=== PATIENT | female | born 1980 | race Caucasian/White ===

== ENCOUNTER 2019-05-17 15:47 | Emergency (ER) | payer OTHER ==
[2019-05-17 16:04] VITALS: BP 131/85; PULSE 89; TEMP 98.3; BMI 30.2
[2019-05-17] MEDS ORDERED: IBUPROFEN 400 MG TABLET (FP) PO ONE ×2 (16:22→16:26)
[2019-05-17] MEDS ORDERED: IBUPROFEN 600 MG TABLET (FP) PO ONE (16:27)
--- NOTE | 2019-05-17 16:27 | PDOC ---
History of Present Illness - General Chief Complaint: Cold Symptoms Stated Complaint: Cold Symptoms Time Seen by Provider: 05/17/19 16:07 History Source: Patient - History of Present Illness Timing/Duration: reports: other Past History - Past Medical History Allergies/Adverse Reactions: Allergies Allergy/AdvReac Type Severity Reaction Status Date / Time morphine Allergy Verified 05/17/19 16:04 Home Medications: Ambulatory Orders Acetaminophen [Tylenol] 650 mg PO Q6H #30 capsule 05/17/19 Sulfamethoxazole/Trimethoprim [Bactrim Ds Tablet] 1 each PO BID #14 tablet 05/17/19 Asthma: No Cancer: No Cardiac Disorders: Yes (R/O ARVD( CARDIOMYOPATHY) COPD: No DVT: No Diabetes: No HTN: No Seizures: No Thyroid Disease: No - Immunization History Immunization Up to Date: Yes - Psycho Social/Smoking Cessation Hx Smoking History: Never smoked Have you smoked in the past 12 months: No Number of Cigarettes Smoked Daily: 0 Cigars Per Day: 0 Information on smoking cessation initiated: No Hx Alcohol Use: No Drug/Substance Use Hx: No Substance Use Type: None Hx Substance Use Treatment: No Review of Systems - Review of Systems Constitutional: Yes: Chills, Malaise HEENTM: No: Ear Pain, Throat Pain Respiratory: No: Cough ABD/GI: Yes: Nausea. No: Diarrhea, Vomiting, Abdominal cramping : No: Burning, Dysuria, Flank Pain, Hematuria Musculoskeletal: Yes: Back Pain *Physical Exam - Vital Signs Last Vital Signs Temp Pulse Resp BP Pulse Ox 98.3 F 89 18 131/85 100 05/17/19 16:02 05/17/19 16:02 05/17/19 16:02 05/17/19 16:02 05/17/19 16:02 - Physical Exam 05/17/19 16:26 [email or web address] uncomfortable General Appearance: Yes: Appropriately Dressed, Apparent Distress HEENT: positive: Normal ENT Inspection, TMs Normal, Pharynx Normal. negative: Normal Voice, Scleral Icterus (R), Scleral Icterus (L) Neck: positive: Supple Respiratory/Chest: positive: Lungs Clear, Normal Breath Sounds. negative: Respiratory Distress Cardiovascular: positive: Regular Rate, S1, S2 Gastrointestinal/Abdominal: positive: Normal Bowel Sounds, Soft. negative: Tender, Distended, Guarding, Rebound Musculoskeletal: positive: Normal Inspection, CVA Tenderness (R), CVA Tenderness (L) Integumentary: positive: Dry, Warm Neurologic: positive: Fully Oriented, Alert, Normal Mood/Affect Medical Decision Making - Medical Decision Making 05/17/19 16:23 38-year-old female, denies any sig past medical history, here with malaise with body aches including mid back pain w/ nausea and chills x several days. No documented fever, vomiting, sore throat, ear pain, cough, abdominal pain or dysuria. No recent travel or sick contacts see exam Viral syndrome, r/o flu vs UTI/pyelo -pain meds -flu -ua/cx 05/17/19 17:13 UA with positive nitrites and leuks. Given symptoms, will tx for pyelo. Will give dose of ceftriaxone here based on prior sensitivities on record. As no documented fever or vomiting, anticipate discharge with oral antibiotics. 05/17/19 18:21 Pt s/p abx and IVF and reports feeling better at this time. Repeat vitals remained stable. Dc with antibiotics with strict return precautions Discharge - Discharge Information Problems reviewed: Yes Clinical Impression/Diagnosis: Pyelonephritis Condition: Improved Disposition: HOME - Additional Discharge Information Prescriptions: Sulfamethoxazole/Trimethoprim [Bactrim Ds Tablet] 1 each PO BID #14 tablet Acetaminophen [Tylenol] 650 mg PO Q6H #30 capsule - Follow up/Referral Referrals: Lane Jay MD [Primary Care Provider] - - Patient Discharge Instructions Patient Printed Discharge Instructions: Kidney Infection Additional Instructions: Usted fue tratado por infeccin renal. [place] la medicacin segn lo prescrito y si los sntomas persisten o empeoran, regrese a la sneha de emergencias inmediatamente Print Language: NIGERIEN - Post Discharge Activity
[2019-05-17 16:57] LABS: EPI CELLS 7.5 /HPF (0-5/HPF); HYALINE CASTS 5 /lpf (0-8); PH,URINE 6.5 (5.0-8.0); URINE APPEARANCE CLEAR; URINE BACTERIA 1476.7 /hpf (NEGATIVE); URINE BILIRUBIN NEGATIVE (NEGATIVE); URINE COLOR YELLOW; URINE GLUCOSE (UA) NEGATIVE (NEGATIVE); URINE KETONE NEGATIVE (NEGATIVE); URINE LEUK ESTERASE NEGATIVE (NEGATIVE); URINE NITRITE POSITIVE (NEGATIVE); URINE PROTEIN 2+ (NEGATIVE); URINE RBC 28 /hpf (0-4); URINE WBC 6 /hpf (0-5)
[2019-05-17 16:58] LABS: HCG,QUALITATIVE URINE Negative
[2019-05-17] MEDS ORDERED: CEFTRIAXONE 1 GM in DEXTROSE 5%-WATER - 50 ML IVPB ONE (16:59)
[2019-05-17] MEDS ORDERED: CEFTRIAXONE 1 GM/50 ML BAG ONE (17:03)
[2019-05-17] MEDS ORDERED: SODIUM CHLORIDE 1,000 ML IV STA (17:08)
== END 2019-05-17 18:22 | disposition home or self-care (01) ==
LOC: JERFT 15:47
PROC: 3E03329 Introduction of Other Anti-infective into Peripheral Vein, Percutaneous Approach (ICD-10-PCS; principal; 2019-05-17)
PROC: 3E0337Z Introduction of Electrolytic and Water Balance Substance into Peripheral Vein, Percutaneous Approach (ICD-10-PCS; 2019-05-17)
DX: N12 Tubulo-interstitial nephritis, not specified as acute or chronic (principal); Z88.6 Allergy status to analgesic agent
CPT/HCPCS: 81003; 84703; 87086; 87186; 87804; 96361; 96365; 99284-25; J7030

== ENCOUNTER 2020-05-01 19:54 | Emergency (ER) | payer OTHER ==
[2020-05-01 20:01] VITALS: TEMP 98.1; BMI 29.2
[2020-05-01] MEDS ORDERED: SODIUM CHLORIDE 0.9% 500 ML INFUS.BAG IV ONE (21:05)
[2020-05-01 21:28] VITALS: BP 128/84; PULSE 110
[2020-05-01 21:31] LABS: BASO % 0.9 % (0-2.0); EOS % 1.1 % (0-4.5); HEMOGLOBIN 13.9 GM/dL (10.7-15.3); LYMPH % 27.6 % (8-40); MCHC 36.6 g/dl (32.0-36.0); MEAN CELL VOLUME 98.4 fl (80-96); MEAN PLT VOLUME 9.3 fl (7.5-11.1); MONO % 8.4 % (3.8-10.2); PLATELET COUNT 207 K/MM3 (134-434); RBC 3.86 M/mm3 (3.60-5.2); RDW 12.4 % (11.6-15.6); WHITE BLOOD COUNT 5.5 K/mm3 (4.0-10.0)
[2020-05-01 21:38] LABS: PH,URINE 7.5 (5.0-8.0); URINE APPEARANCE CLEAR; URINE BILIRUBIN NEGATIVE (NEGATIVE); URINE COLOR YELLOW; URINE GLUCOSE (UA) NEGATIVE (NEGATIVE); URINE KETONE NEGATIVE (NEGATIVE); URINE LEUK ESTERASE NEGATIVE (NEGATIVE); URINE NITRITE NEGATIVE (NEGATIVE); URINE PROTEIN NEGATIVE (NEGATIVE); URINE UROBILINOGEN 0.2 mg/dL (0.2-1.0)
[2020-05-01 21:53] LABS: CHLORIDE 106 mmol/L (98-107); POTASSIUM 4.1 mmol/L (3.5-5.1); SODIUM 138 mmol/L (136-145)
[2020-05-01 21:56] LABS: ALBUMIN 4.1 g/dl (3.4-5.0); ANION GAP 8 MMOL/L (8-16); BLOOD UREA NITROGEN 13.1 mg/dL (7-18); CO2 25 mmol/L (21-32); GLUCOSE,RANDOM 95 mg/dL (74-106)
[2020-05-01 21:57] LABS: MAGNESIUM 2.2 mg/dL (1.8-2.4)
[2020-05-01 22:00] LABS: BILIRUBIN,TOTAL 2.1 mg/dL (0.2-1); CREATININE 0.6 mg/dL (0.55-1.3); PHOSPHOROUS 2.9 mg/dL (2.5-4.9); SGOT/AST 19 U/L (15-37); SGPT/ALT 32 U/L (13-61)
[2020-05-01 22:01] LABS: TOT PROT 8.2 g/dl (6.4-8.2)
[2020-05-01 22:02] LABS: ALK PHOS 99 U/L (45-117)
== END 2020-05-01 23:30 | disposition home or self-care (01) ==
LOC: JER 19:54
DX: R00.2 Palpitations (principal)
CPT/HCPCS: 36415; 71046-TC-FY; 80053; 81003; 82550; 83735; 84100; 84443; 84484; 84703; 85025; 87086; 87186; 93005; 93010; 99285-25

== ENCOUNTER 2020-06-22 19:22 | Emergency (ER) | payer OTHER ==
[2020-06-22 19:32] VITALS: TEMP 98.6; BMI 30.4
[2020-06-22] MEDS ORDERED: LACTATED RINGERS SOLUTION 1000 ML INFUS.BAG IV ONE (20:52)
[2020-06-22] MEDS ORDERED: METOCLOPRAMIDE HCL INJECTION 10 MG/2 ML VIAL IVPUSH ONE (20:52)
[2020-06-22] MEDS ORDERED: ACETAMINOPHEN 325 MG TABLET (FP) PO ONE (20:53)
[2020-06-22] MEDS ORDERED: LIDOCAINE 5% TOPICAL PATCH TP ONE (20:53)
[2020-06-22] MEDS ORDERED: ACETAMINOPHEN 325 MG TABLET (FP) ONE (21:00)
[2020-06-22] MEDS ORDERED: METOCLOPRAMIDE HCL INJECTION 10 MG/2 ML VIAL ONE (21:01)
[2020-06-22] MEDS ORDERED: LIDOCAINE 5% TOPICAL PATCH ONE (21:01)
[2020-06-22] MEDS ORDERED: LIDOCAINE PATCH REMOVAL MC ONE (22:00)
[2020-06-22] MEDS ORDERED: KETOROLAC TROMETHAMINE 15 MG/ML VIAL IVPUSH ONE (22:12)
[2020-06-22] MEDS ORDERED: KETOROLAC TROMETHAMINE 15 MG/ML VIAL ONE (22:23)
[2020-06-22 23:41] VITALS: BP 122/78; PULSE 80
== END 2020-06-22 23:40 | disposition home or self-care (01) ==
LOC: JER 19:22
PROC: 3E0333Z Introduction of Anti-inflammatory into Peripheral Vein, Percutaneous Approach (ICD-10-PCS; principal; 2020-06-22)
PROC: 3E033GC Introduction of Other Therapeutic Substance into Peripheral Vein, Percutaneous Approach (ICD-10-PCS; 2020-06-22)
DX: G44.201 Tension-type headache, unspecified, intractable (principal)
CPT/HCPCS: 99284-25

== ENCOUNTER 2021-01-29 15:23 | Emergency (ER) | payer OTHER ==
[2021-01-29 15:30] VITALS: BP 115/75; PULSE 75; TEMP 98.1; BMI 31.2
[2021-01-29] MEDS ORDERED: METOCLOPRAMIDE HCL INJECTION 10 MG/2 ML VIAL ONE (16:02)
[2021-01-29] MEDS ORDERED: KETOROLAC TROMETHAMINE 30 MG/1 ML VIAL ONE (16:02)
[2021-01-29] MEDS ORDERED: SODIUM CHLORIDE 0.9% 500 ML INFUS.BAG IV ONE (16:04)
[2021-01-29] MEDS ORDERED: KETOROLAC TROMETHAMINE 30 MG/1 ML VIAL IVPUSH ONE (16:04)
[2021-01-29] MEDS ORDERED: METOCLOPRAMIDE HCL INJECTION 10 MG/2 ML VIAL IVPUSH ONE (16:04)
== END 2021-01-29 18:04 | disposition home or self-care (01) ==
LOC: JERFT 15:23 → JER 15:23 → JERFT 18:04
PROC: 3E033GC Introduction of Other Therapeutic Substance into Peripheral Vein, Percutaneous Approach (ICD-10-PCS; principal; 2021-01-29)
DX: R51.9 Headache, unspecified (principal)
CPT/HCPCS: 93005; 93010; 96374; 96375; 99284-25

== ENCOUNTER 2022-01-05 15:56 | Emergency (ER) | payer OTHER ==
[2022-01-05] MEDS ORDERED: ACETAMINOPHEN 1000 MG/100 ML BAG IVPB ONE (16:12)
[2022-01-05] MEDS ORDERED: LACTATED RINGERS SOLUTION 1000 ML INFUS.BAG IV ONE (16:13)
[2022-01-05 16:14] VITALS: BP 124/80; PULSE 93; RESP 18; TEMP 98.8; BMI 32.2
[2022-01-05] MEDS ORDERED: ACETAMINOPHEN INJECTION 100 ML IVPB ONE (16:17)
[2022-01-05] MEDS ORDERED: SODIUM CHLORIDE 0.9% 500 ML INFUS.BAG IV ONE (16:18)
[2022-01-05 16:38] LABS: HEMATOCRIT 40.2 % (32.4-45.2); HEMOGLOBIN 14.7 G/dL (10.7-15.3); MCH 36.5 pg (25.7-33.7); MCHC 36.6 g/dl (32.0-36.0); MEAN CELL VOLUME 99.8 fl (80-96); MEAN PLT VOLUME 9.2 fl (7.5-11.1); PLATELET COUNT 217.9 10^3/uL (134-434); RBC 4.03 10^6/uL (3.60-5.2); RDW 13.4 % (11.6-15.6); WHITE BLOOD COUNT 9.1 10^3/uL (4.0-10.8)
[2022-01-05 16:44] LABS: HCG,QUALITATIVE URINE Negative
[2022-01-05 16:59] LABS: INR 1.01 (0.83-1.09); PROTHROMBIN TIME (PATIENT) 11.6 SEC (9.7-13.0)
[2022-01-05 17:02] LABS: ACTIVATED PTT 31.4 SECONDS (25.2-36.5)
[2022-01-05 17:07] LABS: ALBUMIN 4.4 g/dl (3.4-5.0); BILIRUBIN,TOTAL 1.7 mg/dl (0.2-1); CALCIUM 9.6 mg/dl (8.5-10); CREATININE 0.5 mg/dl (0.55-1.3)
[2022-01-05 18:00] LABS: PLATELET ESTIMATE ADEQUATE
[2022-01-05] MEDS ORDERED: CEPHALEXIN MONOHYDRATE 500 MG CAPSULE (UD) PO ONE (18:32)
[2022-01-05] MEDS ORDERED: CEPHALEXIN MONOHYDRATE 500 MG CAPSULE (UD) ONE (18:34)
== END 2022-01-05 18:45 | disposition home or self-care (01) ==
LOC: FER 15:56
PROC: 3E033NZ Introduction of Analgesics, Hypnotics, Sedatives into Peripheral Vein, Percutaneous Approach (ICD-10-PCS; principal; 2022-01-05)
DX: R10.9 Unspecified abdominal pain (principal)
CPT/HCPCS: 36415; 74176-TC; 80053; 81003; 84703; 85025; 85610; 85730; 86850; 86900; 86901; 87086; 87186; 99285-25

== ENCOUNTER 2022-01-06 10:49 | Emergency (ER) | payer OTHER ==
[2022-01-06 11:08] VITALS: BP 130/70; PULSE 108; RESP 18; TEMP 97.9; BMI 29.2
[2022-01-06] MEDS ORDERED: KETOROLAC TROMETHAMINE 30 MG/1 ML VIAL IM ONE (11:39)
[2022-01-06] MEDS ORDERED: KETOROLAC TROMETHAMINE 30 MG/1 ML VIAL ONE (12:18)
== END 2022-01-06 13:07 | disposition home or self-care (01) ==
LOC: JER 10:49 → JERFT 10:49
PROC: 3E0233Z Introduction of Anti-inflammatory into Muscle, Percutaneous Approach (ICD-10-PCS; principal; 2022-01-06)
DX: J09.X2 Influenza due to identified novel influenza A virus with other respiratory manifestations (principal)
CPT/HCPCS: 0241U-QW; 71046-TC-FY; 96372; 99284-25

== ENCOUNTER 2022-07-09 04:17 | Day surgery (SDC) | payer OTHER ==
[2022-07-05 09:43] VITALS: BMI 31.2
[2022-07-09 15:00] VITALS: RESP 18
[2022-07-09] MEDS ORDERED: ONDANSETRON 4 MG/2 ML VIAL ONE (17:25)
[2022-07-09] MEDS ORDERED: MIDAZOLAM HCL 2 MG/2 ML SINGLE DOSE VIAL ONE (17:25)
[2022-07-09 19:04] VITALS: TEMP 97.1
[2022-07-09 19:23] VITALS: BP 124/82; PULSE 64
== END 2022-07-09 20:00 | disposition home or self-care (01) ==
LOC: JASU-SURG 04:17
PROVIDERS: ATTEND Urology
PROC: 0TF3XZZ Fragmentation in Right Kidney Pelvis, External Approach (ICD-10-PCS; principal; 2022-07-09 16:30)
DX: N20.0 Calculus of kidney (principal)
CPT/HCPCS: 81025

== ENCOUNTER 2022-08-20 14:44 | Emergency (ER) | payer OTHER ==
[2022-08-20 15:07] VITALS: BP 130/89; PULSE 69; RESP 16; TEMP 99.3; BMI 31.2
== END 2022-08-20 17:50 | disposition home or self-care (01) ==
LOC: FER 14:44
DX: R00.2 Palpitations (principal); R30.9 Painful micturition, unspecified; R30.0 Dysuria
CPT/HCPCS: 81003; 81015; 87086; 87186; 93005; 99284-25

== ENCOUNTER 2022-10-31 21:34 | Emergency (ER) | payer OTHER ==
[2022-10-31 21:49] VITALS: BMI 30.2
[2022-10-31] MEDS ORDERED: MAG HYDROX/AL HYDROX/SIMETH 30 ML UNIT-DOSE CUP PO ONE (22:28)
[2022-10-31] MEDS ORDERED: ONDANSETRON 4 MG/2 ML VIAL IVPUSH ONE (22:28)
[2022-10-31] MEDS ORDERED: SODIUM CHLORIDE 0.9% 500 ML INFUS.BAG IV ONE (22:28)
[2022-10-31] MEDS ORDERED: ACETAMINOPHEN 1000 MG/100 ML BAG IVPB ONE (22:28)
[2022-10-31] MEDS ORDERED: FAMOTIDINE 20 MG/50 ML IVPB 20 MG/50 ML MG IVPB ONE ×2 (22:28→22:53)
[2022-10-31] MEDS ORDERED: ACETAMINOPHEN INJECTION 100 ML IVPB ONE (22:52)
[2022-10-31] MEDS ORDERED: MAG HYDROX/AL HYDROX/SIMETH 30 ML UNIT-DOSE CUP ONE (22:52)
[2022-10-31] MEDS ORDERED: ONDANSETRON 4 MG/2 ML VIAL ONE (22:53)
[2022-10-31 23:18] LABS: BASO % 0.8 % (0-2.0); EOS % 1.3 % (0-4.5); HEMATOCRIT 39.7 % (32.4-45.2); HEMOGLOBIN 14.4 GM/dL (10.7-15.3); LYMPH % 20.8 % (8-40); MCH 35.2 pg (25.7-33.7); MCHC 36.3 g/dl (32.0-36.0); MEAN CELL VOLUME 96.8 fl (80-96); MEAN PLT VOLUME 9.2 fl (7.5-11.1); MONO % 4.7 % (3.8-10.2); NEUT % 72.4 % (42.8-82.8); PLATELET COUNT 220 10^3/uL (134-434); RDW 12.7 % (11.6-15.6); WHITE BLOOD COUNT 10.3 K/mm3 (4.0-10.0)
[2022-10-31 23:35] LABS: POTASSIUM 4.1 mmol/L (3.5-5.1)
[2022-10-31 23:37] LABS: CALCIUM 8.8 mg/dL (8.5-10.1)
[2022-10-31 23:38] LABS: ALBUMIN 3.6 g/dl (3.4-5.0); BLOOD UREA NITROGEN 15.6 mg/dL (7-18)
[2022-10-31 23:41] LABS: CREATININE 0.5 mg/dL (0.55-1.3)
[2022-10-31 23:42] LABS: BILIRUBIN,TOTAL 1.3 mg/dL (0.2-1); TOT PROT 7.8 g/dl (6.4-8.2)
[2022-11-01 00:50] VITALS: BP 132/80; PULSE 85; RESP 16; TEMP 98.3
== END 2022-11-01 03:55 | disposition home or self-care (01) ==
LOC: JER 21:34
PROC: 3E033GC Introduction of Other Therapeutic Substance into Peripheral Vein, Percutaneous Approach (ICD-10-PCS; principal; 2022-10-31)
PROC: 3E033NZ Introduction of Analgesics, Hypnotics, Sedatives into Peripheral Vein, Percutaneous Approach (ICD-10-PCS; 2022-10-31)
PROC: 3E033GC Introduction of Other Therapeutic Substance into Peripheral Vein, Percutaneous Approach (ICD-10-PCS; 2022-10-31)
DX: R11.10 Vomiting, unspecified (principal); R10.13 Epigastric pain; K80.51 Calculus of bile duct without cholangitis or cholecystitis with obstruction
CPT/HCPCS: 36415; 71046-TC-FY; 76705-TC; 80053; 83690; 84484; 84703; 85025; 93005; 93010; 99285-25

== ENCOUNTER → 2023-03-08 | Emergency (ER) | payer OTHER ==
[~2023-03-08] MED LIST: ACETAMINOPHEN 325 MG TABLET (FP) ONE; ACETAMINOPHEN 325 MG TABLET (FP) PO ONE; FLUORESCEIN NA 1 EA STRIP ONE; FLUORESCEIN NA 1 EA STRIP OU ONE; TETRACAINE 0.5% HCL 0.6ML DROPPER.BOTTLE OU ONE
[2023-03-08 13:19] VITALS: BP 140/85; PULSE 97; RESP 18; TEMP 99.4; BMI 31.2
== END | disposition short-term general hospital (02) ==
LOC: FER 12:44
DX: H92.03 Otalgia, bilateral (principal); H53.8 Other visual disturbances; R51.9 Headache, unspecified; Z20.822 Contact with and (suspected) exposure to COVID-19
CPT/HCPCS: 0241U-QW; 99285-25

== ENCOUNTER 2023-10-02 14:18 | Emergency (ER) | payer OTHER ==
[2023-10-02 14:32] VITALS: BMI 26.9
[2023-10-02] MEDS ORDERED: ONDANSETRON 4 MG/2 ML VIAL ONE (15:22)
[2023-10-02] MEDS ORDERED: ACETAMINOPHEN INJECTION 100 ML IVPB ONE (15:22)
[2023-10-02 15:27] LABS: BASO % 0.5 % (0-2.0); EOS % 0.3 % (0-4.5); HEMATOCRIT 36.6 % (32.4-45.2); HEMOGLOBIN 13.2 GM/dL (10.7-15.3); LYMPH % 7.8 % (8-40); MCH 35.9 pg (25.7-33.7); MCHC 36.1 g/dl (32.0-36.0); MEAN CELL VOLUME 99.6 fl (80-96); MEAN PLT VOLUME 8.8 fl (7.5-11.1); MONO % 6.5 % (3.8-10.2); NEUT % 84.9 % (42.8-82.8); PLATELET COUNT 236 10^3/uL (134-434); RBC 3.67 M/mm3 (3.60-5.2); RDW 13.1 % (11.6-15.6); WHITE BLOOD COUNT 12.4 K/mm3 (4.0-10.0)
[2023-10-02 15:33] LABS: INR 1.11 (0.83-1.09); PROTHROMBIN TIME (PATIENT) 12.7 SEC (9.7-13.0)
[2023-10-02 15:36] LABS: ACTIVATED PTT 30.5 SECONDS (25.2-36.5)
[2023-10-02] MEDS: ACETAMINOPHEN 1000 MG/100 ML BAG IVPB ONE (15:40)
[2023-10-02] MEDS: LACTATED RINGERS SOLUTION 1000 ML INFUS.BAG IV ONE (15:40)
[2023-10-02] MEDS: ONDANSETRON 4 MG/2 ML VIAL IVPUSH ONE (15:40)
[2023-10-02 15:46] LABS: CHLORIDE 104 mmol/L (98-107); SODIUM 136 mmol/L (136-145)
[2023-10-02 15:47] LABS: MAGNESIUM 2.1 mg/dL (1.8-2.4)
[2023-10-02 15:48] LABS: ALBUMIN 3.7 g/dl (3.4-5.0)
[2023-10-02 15:49] LABS: EPI CELLS 27 /uL (0-25.1); HYALINE CASTS 0 /uL (0-3.1); PH,URINE 7.5 (5.0-8.0); URINE APPEARANCE CLEAR; URINE BACTERIA 72 /uL (0-1359); URINE BILIRUBIN NEGATIVE (NEGATIVE); URINE COLOR YELLOW; URINE GLUCOSE (UA) NEGATIVE (NEGATIVE); URINE KETONE NEGATIVE (NEGATIVE); URINE LEUK ESTERASE TRACE (NEGATIVE); URINE NITRITE NEGATIVE (NEGATIVE); URINE PROTEIN NEGATIVE (NEGATIVE); URINE RBC 54 /uL (0-23.9); URINE UROBILINOGEN 0.2 mg/dL (0.2-1.0); URINE WBC 12 /uL (0-25.8)
[2023-10-02 15:49] LABS: ANION GAP 7 mmol/L (4-13); BLOOD UREA NITROGEN 6.6 mg/dL (7-18); CO2 26 mmol/L (21-32); GLUCOSE,RANDOM 95 mg/dL (74-106)
[2023-10-02 15:52] LABS: CREATININE 0.5 mg/dL (0.55-1.3); SGOT/AST 15 U/L (15-37); SGPT/ALT 29 U/L (13-61)
[2023-10-02 15:53] LABS: BILIRUBIN,TOTAL 3.6 mg/dL (0.2-1); TOT PROT 7.6 g/dl (6.4-8.2)
[2023-10-02 15:54] LABS: ALK PHOS 100 U/L (45-117)
[2023-10-02 16:56] LABS: BILIRUBIN,DIRECT 0.4 mg/dL (0.0-0.2)
[2023-10-02] MEDS: SODIUM CHLORIDE 0.9% 500 ML INFUS.BAG IV ONE (19:27)
[2023-10-02] MEDS ORDERED: diphenhydrAMINE HCL 25 MG CAPSULE (FP) PO ONE (19:28)
[2023-10-02] MEDS: diphenhydrAMINE HCL 50 MG CAPSULE PO ONE (19:29)
[2023-10-02] MEDS ORDERED: CEFTRIAXONE 1 GM/50 ML BAG ONE (19:41)
[2023-10-02 20:42] VITALS: BP 117/72; PULSE 100; RESP 17; TEMP 97.8
== END 2023-10-02 20:45 | disposition home or self-care (01) ==
LOC: JER 14:18
PROC: 3E033GC Introduction of Other Therapeutic Substance into Peripheral Vein, Percutaneous Approach (ICD-10-PCS; principal; 2023-10-02)
PROC: 3E03329 Introduction of Other Anti-infective into Peripheral Vein, Percutaneous Approach (ICD-10-PCS; 2023-10-02)
PROC: 3E033NZ Introduction of Analgesics, Hypnotics, Sedatives into Peripheral Vein, Percutaneous Approach (ICD-10-PCS; 2023-10-02)
DX: R00.2 Palpitations (principal); N39.0 Urinary tract infection, site not specified; R30.0 Dysuria; R35.0 Frequency of micturition; R10.30 Lower abdominal pain, unspecified; M25.511 Pain in right shoulder; M54.6 Pain in thoracic spine; M79.604 Pain in right leg; M79.605 Pain in left leg; R11.0 Nausea; R53.1 Weakness
CPT/HCPCS: 36415; 71275-TC; 76705-TC; 80053; 81003; 82248; 82550; 83690; 83735; 84443; 84484; 84703; 85025; 85379; 85610; 85730; 86850; 86900; 86901; 87086; 93005; 93010; 99285-25; J0131; Q9967